=== PATIENT | male | born 1985 | race Caucasian/White ===

== ENCOUNTER 2017-01-30 16:59 | Emergency (ER) | payer MEDICAID ==
[2017-01-30] MEDS ORDERED: HYDROCODONE/APAP 7.5/325MG TABLET PO ONE (18:41)
--- NOTE | 2017-01-30 18:44 | Emergency Department Record ---
History of Present Illness - General Stated Complaint: FRACTURED HAND Time Seen by Provider: 01/30/17 18:40 Source: Patient Mode of Arrival: Ambulatory Limitations: No limitations - History of Present Illness Initial Comments: 31 yo male presents to ED for evaluation of a fall injury to the right hand around 16:00 today. Patient reports that he was taking his dog out when he slipped and fell resulting in injury. Patient reports previous fracture to the affected hand as well. Patient denies other injury on examination, and denies health problems other than a heart murmur. Complaint: Injury to:: Right Onset/Timin -: Hour(s) Other Extremity Injury: Hand: Right Other Injuries: None Handedness: Right Place: Home Improves With: None Worsens With: Movement of extremity Context: Fall, Injury Associated Symptoms: Denies other symptoms - Related Data Previous Rx's Medication Instructions Recorded Hydrocodone/Acetaminophen [[place] 1 each PO Q6H PRN #10 tablet 01/30/17 5-325 Tablet] Ibuprofen [Motrin] 800 mg PO Q6H PRN #30 tab 01/30/17 Allergies Allergy/AdvReac Type Severity Reaction Status Date / Time codeine Allergy MIGRAINES Verified 01/30/17 18:47 Review of Systems Constitutional: Denies: Chills, Fever, Malaise, Night sweats Eyes: Denies: Eye discharge, Eye pain ENT: Denies: Congestion, Ear pain, Epistaxis Respiratory: Denies: Cough, Dyspnea Cardiovascular: Denies: Chest pain, Dyspnea on exertion Endocrine: Denies: Fatigue, Heat or cold intolerance Gastrointestinal: Denies: Abdominal pain, Nausea, Vomiting Genitourinary: Denies: Incontinence, Retention Musculoskeletal: Reports: Arthralgia. Denies: Back pain, Gout Skin: Denies: Bruising, Change in color Neurological: Denies: Abnormal gait, Confusion, Headache, Tingling Psychiatric: Denies: Anxiety Hematological/Lymphatic: Denies: Anemia, Blood Clots Physical Exam - General General Appearance: Alert, Oriented x3, Cooperative, Moderate distress Limitations: No limitations - Head Head exam: Atraumatic, Normocephalic, Normal inspection Head exam detail: negative: Abrasion, Contusion, Castro's sign, General tenderness, Hematoma, Laceration - Eye Eye exam: Normal appearance. negative: Conjunctival injection, Periorbital swelling, Periorbital tenderness, Scleral icterus - ENT Ear exam: negative: Auricular hematoma, Auricular trauma Nasal Exam: negative: Active bleeding, Discharge, Dried blood, Foreign body Mouth exam: negative: Drooling, Laceration, Tongue elevation - Neck Neck exam: Normal inspection. negative: Meningismus, Tenderness - Respiratory Respiratory exam: Normal lung sounds bilaterally. negative: Respiratory distress, Rhonchi, Stridor, Wheezes - Cardiovascular Cardiovascular Exam: Regular rate, Normal rhythm, Normal heart sounds Peripheral Pulses: 3+: Radial (R) - GI/Abdominal GI/Abdominal exam: Soft. negative: Rebound, Rigid, Tenderness - Rectal Rectal exam: Deferred - exam: Deferred - Extremities Extremities exam: Tenderness, Other (TTP over the 4th/5th ,metacarpals and wrist , mild STS present to this area, ROM limited by pain. Patient denies injury proximal to the wrist.). negative: Calf tenderness, Pedal edema - Back Back exam: Denies: CVA tenderness (R), CVA tenderness (L) - Neurological Neurological exam: Alert, Normal gait, Oriented X3 - Psychiatric Psychiatric exam: Normal affect, Normal mood - Skin Skin exam: Normal color. negative: Abrasion Type of lesion: negative: abrasion Course - Reevaluation(s) Reevaluation #1: 01/30/17 19:08 Right hand: Possible min. displaced 5th metacarpal fracture Patient was updated on his radiology results, symptoms appear c/w fracture given his pain clinical pain symptoms. Will splint with hand follow-up in 1 week and analgesia as needed for his pain symptoms. Disposition Disposition: Discharge Clinical Impression: Closed fracture of 5th metacarpal Qualifiers: Encounter type: initial encounter Metacarpal location: shaft Fracture alignment : nondisplaced Laterality: right Qualified Code(s): S62.356A - Nondisplaced fracture of shaft of fifth metacarpal bone, right hand, initial encounter for closed fracture Disposition: Home, Self-Care Condition: (2) Stable Instructions: Boxer Fracture (ED) Additional Instructions: Return to ED if your symptoms worsen or if you have any concerns. Follow-up with Dr. Pop in 5-7 days as directed. Leave splint in place until seen by Dr. Pop. [place]aven and Ibuprofen as needed for pain symptoms. Prescriptions: Hydrocodone/Acetaminophen [[place] 5-325 Tablet] 1 each PO Q6H PRN #10 tablet PRN Reason: Pain - Severe (8-10) Ibuprofen [Motrin] 800 mg PO Q6H PRN #30 tab PRN Reason: Pain - Moderate (5-7) Referrals: SORAYA POP M.D. [MEDICAL DOCTOR] - Forms: Patient Portal Access Time of Disposition: 19:37 Quality - Quality Measures Quality Measures: N/A - Blood Pressure Screening Does Patient Have Any of the Following: No Blood Pressure Classification: Pre-Hypertensive BP Reading Systolic Measurement: 128 Diastolic Measurement: 76 Screening for High Blood Pressure: < Pre-Hypertensive BP, F/U Documented > [ G8950] Pre-Hypertensive Follow-up Interventions: Referral to alternative/primary care provider.
--- NOTE | 2017-01-31 08:57 | RADIOLOGY REPORT ---
EXAM: RIGHT HAND HISTORY: INJURY. TECHNIQUE: Three views of the right hand were performed. FINDINGS: There is a nondisplaced oblique fracture deformity of the fifth metacarpal bone. The remainder of the osseous structures are intact. IMPRESSION: NONDISPLACED OBLIQUE FRACTURE DEFORMITY OF THE FIFTH METACARPAL BONE. JOB NUMBER: [id number] MTDD
== END 2017-01-30 20:03 | disposition home or self-care (01) ==
LOC: ER 16:59
DX: S62.356A Nondisplaced fracture of shaft of fifth metacarpal bone, right hand, initial encounter for closed fracture (principal); W01.0XXA Fall on same level from slipping, tripping and stumbling without subsequent striking against object, initial encounter; Y92.007 Garden or yard of unspecified non-institutional (private) residence as the place of occurrence of the external cause
CPT/HCPCS: 99283

== ENCOUNTER 2017-08-08 01:34 | Emergency (ER) | payer MEDICAID ==
[2017-08-08] MEDS ORDERED: HYDROCODONE/APAP 5/325MG TABLET PO ONE (01:59)
--- NOTE | 2017-08-08 02:24 | Emergency Department Record ---
History of Present Illness - General Chief Complaint: Ankle/Foot Injury Stated Complaint: BROKEN FOOT Time Seen by Provider: 08/08/17 01:55 Source: Patient Mode of Arrival: Ambulatory Limitations: No limitations - History of Present Illness Initial Comments: pt was wrestling and kicked friend in the hip injuring his foot that has had previous surgeries Complaint: Foot injury Onset/Timin -: Hour(s) Injury: Foot: Right Type of Injury: Blunt Place: Home Improves With: Nothing Worsens With: Movement, Palpation, Weight bearing Context: Direct blow Associated Symptoms: Snap/pop sensation, Swelling - Related Data Home Medications Medication Instructions Recorded Confirmed Last Taken Dicyclomine HCl [Bentyl] 10 mg PO Q8H 08/08/17 08/08/17 Unknown Guanfacine HCl 1 mg PO DAILY 08/08/17 08/08/17 Unknown Hydroxyzine Pamoate [Vistaril] 25 mg PO TID 08/08/17 08/08/17 Unknown Lamotrigine 200 mg PO DAILY 08/08/17 08/08/17 Unknown Quetiapine Fumarate [Seroquel] 200 mg PO QAM 08/08/17 08/08/17 Unknown Quetiapine Fumarate [Seroquel] 300 mg PO QPM 08/08/17 08/08/17 Unknown Allergies Allergy/AdvReac Type Severity Reaction Status Date / Time codeine Allergy MIGRAINES Verified 01/30/17 18:47 Travel Screening - Travel/Exposure Within Last 30 Days Have you traveled within the last 30 days?: No - Travel/Exposure Within Last Year Have you traveled outside the [place] in the last year?: No - Additonal Travel Details Have you been exposed to anyone with a communicable illness?: No - Travel Symptoms Symptom Screening: None Review of Systems Reviewed: No additional complaints except as noted below Constitutional: Reports: As per HPI. Denies: Chills, Fever, Malaise, Night sweats, Weakness, Weight change Eyes: Reports: As per HPI. Denies: Eye discharge, Eye pain, Photophobia, Vision change ENT: Reports: As per HPI. Denies: Congestion, Dental pain, Ear pain, Epistaxis , Hearing loss, Throat pain Respiratory: Reports: As per HPI. Denies: Cough, Dyspnea, Hemoptysis, Stridor, Wheezes Cardiovascular: Reports: As per HPI. Denies: Arrhythmia, Chest pain, Dyspnea on exertion, Edema, Murmurs, Orthopnea, Palpitations, Paroxysmal nocturnal dyspnea, Rheumatic Fever, Syncope Endocrine: Reports: As per HPI. Denies: Fatigue, Heat or cold intolerance, Polydipsia, Polyuria Gastrointestinal: Reports: As per HPI. Denies: Abdominal pain, Constipation, Diarrhea, Hematemesis, Hematochezia, Melena, Nausea, Vomiting Genitourinary: Reports: As per HPI. Denies: Dysuria, Frequency, Hematuria, Incontinence, Retention, Testicular pain, Testicular mass, Urgency Musculoskeletal: Reports: As per HPI. Denies: Arthralgia, Back pain, Gout, Joint swelling, Myalgia, Neck pain Skin: Reports: As per HPI. Denies: Bruising, Change in color, Change in hair/ nails, Lesions, Pruritus, Rash Neurological: Reports: As per HPI. Denies: Abnormal gait, Confusion, Headache, Numbness, Paresthesias, Seizure, Tingling, Tremors, Vertigo, Weakness Psychiatric: Reports: As per HPI. Denies: Anxiety, Auditory hallucinations, Depression, Homicidal thoughts, Suicidal thoughts, Visual hallucinations Hematological/Lymphatic: Reports: As per HPI. Denies: Anemia, Blood Clots, Easy bleeding, Easy bruising, Swollen glands Past Medical History - SOCIAL HISTORY Smoking Status: Current every day smoker Alcohol Use: None Alcohol Use Comment: former Drug Use Detail:: Marijuana - RESPIRATORY Hx Respiratory Disorders: No - CARDIOVASCULAR Hx Cardio Disorders: No - NEURO Hx Neuro Disorders: No - GI Hx GI Disorders: No - Hx Genitourinary Disorders: No - ENDOCRINE Hx Endocrine Disorders: No - MUSCULOSKELETAL Hx Musculoskeletal Disorders: Yes Comment:: crush injury 2007 - PSYCH Hx Psych Problems: Yes Hx Anxiety: Yes Hx Depression: Yes Comment:: borderline personality disorder and schizoaffective & post-concussion &ptsd - HEMATOLOGY/ONCOLOGY Hx Hematology/Oncology Disorders: No Family Medical History Any Significant Family History?: Yes Hx Cancer: Grandparents Hx Diabetes: Mother, Brother/Sister, Grandparents Hx Heart Disease: Mother, Grandparents Hx Stroke: Grandparents Physical Exam - General General Appearance: Alert, Oriented x3, Cooperative, Mild distress - Head Head exam: Normal inspection - Eye Eye exam: Normal appearance, PERRL, EOMI Pupils: Normal accommodation - ENT ENT exam: Normal exam, Mucous membranes moist, Normal external ear exam, Normal orophraynx Ear exam: Normal external inspection. negative: External canal tenderness Nasal Exam: Normal inspection. negative: Discharge, Sinus tenderness Mouth exam: Normal external inspection, Tongue normal Teeth exam: Normal inspection. negative: Dental caries Throat exam: Normal inspection. negative: Tonsillar erythema, Tonsillar exudate - Neck Neck exam: Normal inspection, Full ROM. negative: Tenderness - Respiratory Respiratory exam: Normal lung sounds bilaterally. negative: Respiratory distress - Cardiovascular Cardiovascular Exam: Regular rate, Normal rhythm, Normal heart sounds - GI/Abdominal GI/Abdominal exam: Soft, Normal bowel sounds. negative: Tenderness - Rectal Rectal exam: Deferred - exam: Deferred - Extremities Extremities exam: Joint swelling, Normal capillary refill, Tenderness. negative : Full ROM - Back Back exam: Reports: Normal inspection, Full ROM. Denies: Muscle spasm, Rash noted, Tenderness - Neurological Neurological exam: Alert, Normal gait, Oriented X3, Reflexes normal - Psychiatric Psychiatric exam: Normal affect, Normal mood - Skin Skin exam: Dry, Intact, Normal color, Warm Course Vital Signs 08/08/17 01:41 Temperature 98.3 F Pulse Rate [ 85 Pulse Ox Probe] Respiratory 16 Rate Blood Pressure 141/85 [Left Arm] Pulse Ox 99 Disposition Disposition: Discharge Clinical Impression: Contusion, foot Qualifiers: Encounter type: initial encounter Laterality: right Qualified Code(s): S90.31XA - Contusion of right foot, initial encounter Disposition: Home, Self-Care Condition: (1) Good Instructions: Foot Contusion (ED) Additional Instructions: follow up with family doctor. return sooner if worse. ice and elevate. motrin for pain Quality - Quality Measures Quality Measures: N/A - Blood Pressure Screening Does Patient Have Any of the Following: No Blood Pressure Classification: Pre-Hypertensive BP Reading Systolic Measurement: 141 Diastolic Measurement: 85 Screening for High Blood Pressure: < Pre-Hypertensive BP, F/U Documented > [ G8950] Pre-Hypertensive Follow-up Interventions: Follow-up with rescreen every year.
--- NOTE | 2017-08-09 22:01 | RADIOLOGY REPORT ---
EXAM: FOOT, RIGHT 3 VIEWS HISTORY: INJURY. TECHNIQUE: Three views of the right foot were performed. FINDINGS: Post-op surgical change of the first tarsometatarsal joint space. Osteopenia. Mild soft tissue swelling. No evidence of fracture or dislocation. IMPRESSION: SOFT TISSUE SWELLING. POST-OP SURGICAL CHANGE OF THE FIRST TARSOMETATARSAL JOINT SPACE. UNDERLYING OSTEOPENIA. JOB NUMBER: [id number] MTDD
== END 2017-08-08 02:46 | disposition home or self-care (01) ==
LOC: ER 01:34
DX: S90.31XA Contusion of right foot, initial encounter (principal); F17.210 Nicotine dependence, cigarettes, uncomplicated; W50.1XXA Accidental kick by another person, initial encounter; Y93.83 Activity, rough housing and horseplay
CPT/HCPCS: 99283

== ENCOUNTER 2018-11-18 05:16 | Emergency (ER) | payer MEDICAID ==
[2018-11-18] MEDS: DIPHENHYDRAMINE HCL 50 MG/ML VIAL IM ONE (05:53)
[2018-11-18] MEDS: METHYLPREDNISOLONE PF 125MG/VIAL IM ONE (05:53)
--- NOTE | 2018-11-18 06:00 | Emergency Department Record ---
History of Present Illness - General Chief complaint: Hives Stated complaint: HIVES Time Seen by Provider: 11/18/18 05:44 Source: Patient Mode of Arrival: Ambulatory Limitations: No limitations - History of Present Illness Initial comments: pt broke out in hives from unknown element.he has them on his torso and extremities. he lives in a camper complaint: Rash -: Days(s) Location: Back, Buttocks, LLE, RLE Severity: Moderate Severity scale (1-10): 3 Quality: Burning Consistency: Constant Improves with: None Worsens with: None Context: None Associated symptoms: Itching Treatments Prior to Arrival: None - Related Data Previous Rx's Medication Instructions Recorded Prednisone [Prednisone 10Mg] 10 mg PO ASDIR #30 tab 11/18/18 Allergies Allergy/AdvReac Type Severity Reaction Status Date / Time codeine Allergy MIGRAINES Verified 01/30/17 18:47 Travel Screening - Travel/Exposure Within Last 30 Days Have you traveled within the last 30 days?: No - Travel/Exposure Within Last Year Have you traveled outside the [place] in the last year?: No - Additonal Travel Details Have you been exposed to anyone with a communicable illness?: No - Travel Symptoms Symptom Screening: None Review of Systems Reviewed: No additional complaints except as noted below Constitutional: Reports: As per HPI. Denies: Chills, Fever, Malaise, Night sweats, Weakness, Weight change Eyes: Reports: As per HPI. Denies: Eye discharge, Eye pain, Photophobia, Vision change ENT: Reports: As per HPI. Denies: Congestion, Dental pain, Ear pain, Epistaxis, Hearing loss, Throat pain Respiratory: Reports: As per HPI. Denies: Cough, Dyspnea, Hemoptysis, Stridor, Wheezes Cardiovascular: Reports: As per HPI. Denies: Arrhythmia, Chest pain, Dyspnea on exertion, Edema, Murmurs, Orthopnea, Palpitations, Paroxysmal nocturnal dyspnea, Rheumatic Fever, Syncope Endocrine: Reports: As per HPI. Denies: Fatigue, Heat or cold intolerance, Polydipsia, Polyuria Gastrointestinal: Reports: As per HPI. Denies: Abdominal pain, Constipation, Diarrhea, Hematemesis, Hematochezia, Melena, Nausea, Vomiting Genitourinary: Reports: As per HPI. Denies: Dysuria, Frequency, Hematuria, Incontinence, Retention, Testicular pain, Testicular mass, Urgency Musculoskeletal: Reports: As per HPI. Denies: Arthralgia, Back pain, Gout, Joint swelling, Myalgia, Neck pain Skin: Reports: As per HPI. Denies: Bruising, Change in color, Change in hair/nails, Lesions, Pruritus, Rash Neurological: Reports: As per HPI. Denies: Abnormal gait, Confusion, Headache, Numbness, Paresthesias, Seizure, Tingling, Tremors, Vertigo, Weakness Psychiatric: Reports: As per HPI. Denies: Anxiety, Auditory hallucinations, Depression, Homicidal thoughts, Suicidal thoughts, Visual hallucinations Hematological/Lymphatic: Reports: As per HPI. Denies: Anemia, Blood Clots, Easy bleeding, Easy bruising, Swollen glands Past Medical History - SOCIAL HISTORY Smoking Status: Current every day smoker Alcohol Use: Rare Drug Use: Heavy Drug Use Detail:: Marijuana - RESPIRATORY Hx Respiratory Disorders: Yes Hx Bronchitis: Yes Hx Pneumonia: Yes - CARDIOVASCULAR Hx Cardio Disorders: Yes Hx Palpitations: Yes - NEURO Hx Neuro Disorders: No - GI Hx GI Disorders: No Hx Reflux: Yes Hx Irritable Bowel: Yes - Hx Genitourinary Disorders: Yes Hx Kidney Stones: Yes - ENDOCRINE Hx Endocrine Disorders: No - MUSCULOSKELETAL Hx Musculoskeletal Disorders: Yes Comment:: crush injury 2006 - PSYCH Hx Psych Problems: Yes Hx Anxiety: Yes Hx Depression: Yes Comment:: borderline personality disorder and schizoaffective & post-concussion &ptsd - HEMATOLOGY/ONCOLOGY Hx Hematology/Oncology Disorders: No Family Medical History Any Significant Family History?: Yes Hx Cancer: Grandparents Hx Diabetes: Mother, Brother/Sister, Grandparents Hx Heart Disease: Mother, Grandparents Hx Stroke: Grandparents Physical Exam - General General Appearance: Alert, Oriented x3, Cooperative, Mild distress - Head Head exam: Normal inspection - Eye Eye exam: Normal appearance, PERRL, EOMI Pupils: Normal accommodation - ENT ENT exam: Normal exam, Mucous membranes moist, Normal external ear exam, Normal orophraynx Ear exam: Normal external inspection. negative: External canal tenderness Nasal Exam: Normal inspection. negative: Discharge, Sinus tenderness Mouth exam: Normal external inspection, Tongue normal Teeth exam: Normal inspection. negative: Dental caries Throat exam: Normal inspection. negative: Tonsillar erythema, Tonsillar exudate - Neck Neck exam: Normal inspection, Full ROM. negative: Tenderness - Respiratory Respiratory exam: Normal lung sounds bilaterally. negative: Respiratory distress - Cardiovascular Cardiovascular Exam: Regular rate, Normal rhythm, Normal heart sounds - GI/Abdominal GI/Abdominal exam: Soft, Normal bowel sounds. negative: Tenderness - Rectal Rectal exam: Deferred - exam: Deferred - Extremities Extremities exam: Normal inspection, Full ROM, Normal capillary refill. negative: Tenderness - Back Back exam: Reports: Normal inspection, Full ROM. Denies: Muscle spasm, Rash noted, Tenderness - Neurological Neurological exam: Alert, CN II-XII intact, Normal gait, Oriented X3 - Psychiatric Psychiatric exam: Normal affect, Normal mood - Skin Skin exam: Dry, Intact, Normal color, Urticaria, Warm Type of lesion: Rash Distribution of rash: Abdomen, Back, RLE, LLE Description of rash: Urticarial Course Vital Signs 11/18/18 05:21 Temperature 98.1 F Pulse Rate [ 68 Left] Respiratory 16 Rate Blood Pressure 121/88 [Left] Pulse Ox 98 Disposition Disposition: Discharge Clinical Impression: Urticaria Disposition: Home, Self-Care Condition: (1) Good Instructions: Urticaria (ED) Additional Instructions: follow up with family doctor. return sooner if worse. benadryl every 6 hours as needed Prescriptions: Prednisone [Prednisone 10Mg] 10 mg PO ASDIR #30 tab Forms: Patient Portal Access Quality - Quality Measures Quality Measures: N/A - Blood Pressure Screening Does Patient Have Any of the Following: No Blood Pressure Classification: Pre-Hypertensive BP Reading Systolic Measurement: 121 Diastolic Measurement: 88 Screening for High Blood Pressure: < Pre-Hypertensive BP, F/U Documented > [G8950] Pre-Hypertensive Follow-up Interventions: Follow-up with rescreen every year.
[2018-11-18] MEDS: DIPHENHYDRAMINE HCL 25 MG CAPSULE PO ONE (06:51)
== END 2018-11-18 06:58 | disposition home or self-care (01) ==
LOC: ER 05:16
DX: L50.9 Urticaria, unspecified (principal); F17.210 Nicotine dependence, cigarettes, uncomplicated
CPT/HCPCS: 96372; 99284; J1200; J2930